=== PATIENT | female | born 1990 | race Caucasian/White ===

== ENCOUNTER 2018-01-25 19:57 | Emergency (ER) | payer OTHER ==
[~2018-01-25] VITALS: Ht 154.9 cm; Wt 47.3 kg
[2018-01-25 20:01] VITALS: Ht 154.9 cm; Wt 47.3 kg
[2018-01-25] MEDS ORDERED: TRAMADOL HCL 50 MG TAB PO STA (20:36)
[2018-01-25] MEDS ORDERED: PENICILLIN HOME PACK 500MG (4 DOSES)BTL PO STA (20:36)
[2018-01-25] MEDS ORDERED: PENI-82 PO (20:40)
--- NOTE | 2018-01-25 20:41 | EMERGENCY ROOM VISIT NOTE ---
ED Visit Note First contact with patient: 20:15 CHIEF COMPLAINT: Toothache HISTORY OF PRESENT ILLNESS: This 27-year-old female patient presented to the emergency department, ambulatory, with a male friend, with a progressive toothache for past 1 week. The patient believes it is coming from a fractured tooth (#19) which has a cavity and being pushed upon by impacted [place] Teeth. The pain is now steady and severe and radiates to the face. The patient does not have a dentist appointment set up, as she is waiting for dental insurance. They rate their pain a 9/10 and the Tylenol they have been taking has not relieved the pain. Denies facial swelling or fever. The patient denies any discharge from the mouth. REVIEW OF SYSTEMS: A 6 system review of systems was completed with positives and pertinent negatives listed in the HPI. ALLERGIES: Toradol MEDICATIONS: BuSpar, Tylenol PMH: Fibromyalgia, sciatica, tendinitis, insomnia, anxiety, depression SOCIAL HISTORY: The patient lives locally with family. She denies drug, alcohol use. She smokes 1 pack of cigarettes every 3 days. PHYSICAL EXAM: Vitals are noted on the nurse's note and reviewed by myself. Vital signs stable. Temperature 37.1C orally. GENERAL: This is a 27-year-old white female, in no acute distress, nondiaphoretic, well-developed well- nourished. Mouth: The #19 tooth is very carious and the gum is swollen and tender around it, without any discharge or signs of an abscess. The remainder of the pharynx and tonsils are without erythema, edema, or exudate. The airway is patent. There is no facial swelling, cervical or submandibular lymphadenopathy. The patient appears uncomfortable and in pain. The patient has overall poor dental hygiene. EARS: External auditory canals clear, tympanic membranes pearly perea without erythema or effusion bilaterally. ED COURSE: The patient was seen and evaluated as above. The patient does not have a dentist appointment set up, but her symptoms and examination are concerning for possible infection. I suspect the impacted wisdom teeth are not helping with the discomfort. The patient will be treated at this time with antibiotics and was given 1 dose of pain medication while here in the emergency department. I discussed the importance of close follow-up with an actual dentist or oral surgeon, and the patient verbalizes understanding. I did discuss with her that the emergency department is incapable of managing dental pain long-term. All questions were answered to the patient's satisfaction. She was certainly welcomed back to the emergency department for any worsening symptoms. Discharge instructions reviewed, the patient was discharged home in good condition. I attest that I have personally reviewed the patient's current medication list. Patient was found to have normal blood pressure on screening and does not require follow-up. Differential diagnosis includes odontalgia, periapical abscess, acute sinusitis , osteomyelitis, gingivitis, pulpitis, dental caries, periodontitis, malignancy , and others DIAGNOSIS: Odontalgia The chart was completed utilizing [employer] voice recognition software. Grammatical errors, random word insertions, pronoun errors, and incomplete sentences are an occasional consequence of this system due to software limitations, ambient noise, and hardware issues. Any formal questions or concerns about the content, text, or information contained within the body of this dictation should be directly addressed to the provider for clarification. Current/Historical Medications Scheduled Penicillin V Potassium (Veetids), 500 MG PO QID Vital Signs Date Time Temp Pulse Resp B/P (MAP) Pulse Ox O2 Delivery O2 Flow Rate FiO2 01/25/18 20:48 37.1 89 18 131/91 97 01/25/18 20:01 37.1 89 18 131/91 97 Room Air Medications Administered Medications (Trade) Dose Ordered Sig/Sylvia Route Start Time Stop Time Status Last Admin Dose Admin Tramadol HCl (Ultram Tab) 50 mg NOW STAT PO 01/25/18 20:36 01/25/18 20:37 DC 01/25/18 20:41 50 MG Penicillin V Potassium (Pen-Vk 500MG Home Pack) 1 homepack UD STAT PO 01/25/18 20:36 01/25/18 20:37 DC 01/25/18 20:41 1 HOMEPACK Departure Information Impression Primary Impression: Odontalgia Dispostion Home / Self-Care Condition GOOD Prescriptions Penicillin V Potassium (Veetids) 500 Mg Tab 500 MG PO QID for 10 Days, #40 TAB Prov: Shaunna St PA-C 01/25/18 Referrals No Doctor, Assigned (PCP) Elroy Brewer D.M.D. Patient Instructions ED [facility], [facility] Additional Instructions You have been treated in the Emergency Department for Dental Pain. You have received pain medicine in the emergency department which impairs your ability to operate a vehicle. It is illegal for you to drive after receiving these medicines. You were prescribed Pen-Vee K to be taken 4 times daily 10 days. This is an antibiotic. All antibiotics have the potential to cause diarrhea. Stop this medication and contact a medical provider if you were to develop any significant adverse side effects including: wheezing, shortness of breath, passing out, vomiting, or a diffuse rash. Always take antibiotics as directed and COMPLETE the ENTIRE course regardless of the improvement of your symptoms. For pain control, you can use the following slni-[id number]-casuadd medicines (if >12 yo): Ibuprofen(Motrin, Advil) may be used for fever or pain. Use 600mg every six hours as needed. Take with food. Avoid using more than 2400mg in a 24 hour period. Do not use 2400mg per day for more than three consecutive days without physician direction. Prolonged inappropriate use can lead to stomach upset or ulcers. (AND/OR) Acetaminophen(Tylenol) may be used for fever or pain. Use 1000mg every six hours as needed. Avoid using more than 3000mg in a 24 hour period. Refrain from smoking cigarettes or using chewing tobacco until you have been evaluated by your dentist. Keeping beverages lukewarm and consuming soft foods can decrease your pain. Warm compresses over the affected area may offer some relief. You MUST seek evaluation of your dental pain by a dentist following your visit to the Emergency Department. The Emergency Department is not capable of treating dental issues long-term. You should call your dentist as soon as possible to make an appointment for evaluation of your dental pain. Return to the emergency department if you develop the following symptoms despite treatment course outlined above: fever, intractable pain, increased redness, swelling, or purulent discharge.
[2018-01-25 20:48] VITALS: BP 131/91; PULSE 89; TEMP 37.1; O2SAT 97
== END 2018-01-25 20:49 | disposition home or self-care (01) ==
LOC: C.EDB 19:58 → C.EDD 20:49
DX: K08.89 Other specified disorders of teeth and supporting structures (principal); G47.00 Insomnia, unspecified; F41.9 Anxiety disorder, unspecified; F32.9 Major depressive disorder, single episode, unspecified; F17.200 Nicotine dependence, unspecified, uncomplicated